=== PATIENT | female | born 1990 | race African-American/Black ===

== ENCOUNTER 2020-09-01 18:27 | Emergency (ER) | payer MEDICAID ==
[~2020-09-01] VITALS: Ht 160 cm; Wt 104.3 kg
[2020-09-01 18:40] VITALS: BP 109/55
--- NOTE | 2020-09-01 18:45 | NUR ---
ED Nurse Note:pt. came with right lower lip abrasion
[2020-09-01] MEDS ORDERED: Bupivacaine 0.5% Inj 30 ml vial INJ ONE (19:30)
[2020-09-01] MEDS ORDERED: Tylenol #3 tab (300mg/30mg) ORAL ONE (19:30)
--- NOTE | 2020-09-01 20:24 | Emergency Room Report ---
History of Present Illness General Chief Complaint: Laceration Source: Patient Present Illness HPI 29-year-old female presents to the emergency department complaining of 6 out of 10 severity pain and tenderness to open laceration on the right lower lip. Patient reports that she was feeling an envelope when she accidentally got a paper cut. Patient denies bleeding at this time she denies taking blood thinnin g medications. Patient is not sure when her last tetanus vaccination was however she is not interested in updating it. She reports some increased pain with talking and movement of the lips. Patient denies lacerations elsewhere such as the tongue. Patient denies any other aggravating or relieving factors. She denies . Allergies: Coded Allergies: No Known Allergies (Unverified , 09/01/20) COVID-19 Screening Contact w/high risk pt: No Experienced COVID-19 symptoms?: No COVID-19 Testing performed [employer]: No Patient History Past Medical History: see triage record Past Surgical History: none Pertinent Family History: none Last Menstrual Period: 07/25/2020 Now: No Reviewed Nursing Documentation: PMH: Agreed; PSxH: Agreed Nursing Documentation-PMH Past Medical History: No Stated History Review of Systems All Other Systems: negative except mentioned in HPI Physical Exam Vital Signs Date Time Temp Pulse Resp B/P (MAP) Pulse Ox O2 Delivery O2 Flow Rate FiO2 09/01/20 18:31 98.4 91 18 109/55 (73) 98 Room Air Sp02 EP Interpretation: reviewed, normal General Appearance: no apparent distress, alert, GCS 15, non-toxic Head: normocephalic, other - Right lower lip laceration approx 1 cm in length--Does not cross the million border Eyes: bilateral eye normal inspection, bilateral eye PERRL ENT: hearing grossly normal, normal voice Neck: full range of motion Respiratory: lungs clear, normal breath sounds, speaking full sentences Cardiovascular #1: regular rate, rhythm Musculoskeletal: normal range of motion, gait/station normal, non-tender Neurologic: alert, motor strength/tone normal, oriented x3, sensory intact, responsive, speech normal Psychiatric: judgement/insight normal Skin: laceration - Right lower lip laceration approx 1 cm in length--Does not cross the million border Procedures Laceration/Wound Repair Laceration/Wound Repair : Consent: Verbal Wound Location: face - Right lower lip Wound's Depth, Shape: superficial Wound Length (cm): 1 Wound Explored: clean Irrigated w/ Saline (ccs): 100 Anesthesia: 0.5% Sensorcaine Volume Anesthetic (ccs): 2 Wound Repaired With: sutures Suture Size/Type: 5:0 Number of Sutures: 4 Sterile Dressing Applied?: No Splint Applied?: No Sling Applied?: No Patient Tolerated: Well Complications: None Medical Decision Making PA Attestation Dr. Luz is my supervising Physician whom patient management has been discussed with. Diagnostic Impression: Primary Impression: Laceration of lip Qualified Codes: S01.511A - Laceration without foreign body of lip, initial encounter ER Course 29-year-old female presents to the emergency department complaining of 6 out of 10 severity pain and tenderness to open laceration on the right lower lip. Patient reports that she was feeling an envelope when she accidentally got a pa per cut. Patient denies bleeding at this time she denies taking blood thinning medications. Patient is not sure when her last tetanus vaccination was however she is not interested in updating it. She reports some increased pain with talking and movement of the lips. Patient denies lacerations elsewhere such as the tongue. Patient denies any other aggravating or relieving factors. She denies . Ddx considered but are not limited to laceration, tendon injury, cellulitis, amputation Vital signs: are WNL, pt. is afebrile H&PE are most consistent with: Right lower lip laceration approx 1 cm in length--Does not cross the million border ORDERS: none required at this time, the diagnosis is clinical ED INTERVENTIONS: -Tetanus vaccine was Declined by pt. - The wound was copiously irrigated with normal saline, and explored for foreign body for which no FB was found. - pt. is anesthetized with 1%lidocaine w. epi. - The wound was approximated and closed using 4 interrupted fast absorbing 6.0 chromic sutures. - Discussed with patient: That we make every effort to approximate the laceration as best as we can so that scarring will be as cosmetically pleasing as possible with our limited cosmetic skill set in the Emergency dept. Regardless of our best efforts there will be scarring after laceration repair. The extent of scarring is unknown at this time. DISCHARGE: At this time pt. is stable for d/c to home. Will provide printed patient care instructions, and any necessary prescriptions. Care plan and follow up instructions have been discussed with the patient prior to discharge. Last Vital Signs Date Time Temp Pulse Resp B/P (MAP) Pulse Ox O2 Delivery O2 Flow Rate FiO2 09/01/20 19:59 98.4 09/01/20 18:40 67 18 109/55 98 Room Air Status: improved Disposition: HOME, SELF-CARE Condition: Stable Referrals: [facility] (PCP) Patient Instructions: Facial Laceration, [id number] Additional Instructions: Only eats soups do not eat food that requires a lot of chewing or taking big bites. Try to limit use of straws. Follow up with a Primary Care Provider in 3-5 days, even if your symptoms have resolved. --Please review list of primary care clinics, if you do not already have a pr imary care provider Return sooner to ED if new symptoms occur, or current symptoms become worse. - Please note that this Emergency Department Report was dictated using [employer] manager technology software, occasionally this can lead to err oneous entry secondary to interpretation by the dictation equipment. Ellie Padgett Sep 01, 2020 20:24
[2020-09-01] MEDS ORDERED: TYLENOL EXTRA500 MG ORAL (20:25)
[2020-09-01 20:29] VITALS: BP 110/62
--- NOTE | 2020-09-01 20:29 | NUR ---
ER DISCHARGE NOTE: Patient is cleared to be discharged per ERMD, pt is aox4, on room air, with stable vital signs. pt was given dc instructions, pt was able to verbalize understanding, pt id band removed without complications. pt is able to ambulate with steady gait. pt took all belongings.
== END 2020-09-01 20:30 | disposition home or self-care (01) ==
LOC: EMR 19:30
DX: S01.511A Laceration without foreign body of lip, initial encounter (principal); W45.8XXA Other foreign body or object entering through skin, initial encounter; Y93.89 Activity, other specified; Y92.9 Unspecified place or not applicable
CPT/HCPCS: 12011; S0020; Z7502; 99282